=== PATIENT | male | born 1965 | race Caucasian/White ===

== ENCOUNTER 2025-09-05 06:15 | Day surgery (SDC) | payer OTHER ==
[~2025-09-05 06:15] MED LIST: ceFAZolin 2 GM in Water For Injection, Sterile 20 ML IVPUSH ONE
[2025-09-05] MEDS: Lactated Ringers 1,000 ML IV SCH (06:58)
[2025-09-05] MEDS ORDERED: Ondansetron 4 MG/2 ML SDV IVPUSH PRN (07:02)
[2025-09-05] MEDS ORDERED: fentaNYL 50 MCG/ML SDV IVPUSH PRN (07:02)
[2025-09-05] MEDS ORDERED: Naloxone 0.4 MG/ML SDV IVPUSH PRN (07:02)
[2025-09-05] MEDS ORDERED: Albuterol 0.083% 2.5 MG/3 ML Neb Soln NEB PRN (07:02)
[2025-09-05] MEDS ORDERED: Ropivacaine 0.5% 5 MG/ML 30 ML SDV ONE (07:13)
[2025-09-05] MEDS ORDERED: fentaNYL 100 MCG/2 ML SDV ONE (07:20)
[2025-09-05] MEDS ORDERED: Propofol 200 MG/20 ML SDV ONE (07:20)
[2025-09-05] MEDS ORDERED: Midazolam 1 MG/ML 2 ML SDV ONE (07:20)
[2025-09-05] MEDS ORDERED: dexmedeTOMIDine HCl 200 MCG/2 ML SDV ONE (07:21)
[2025-09-05] MEDS ORDERED: Dexamethasone 4 MG/ML 5 ML MDV ONE (08:36)
[2025-09-05] MEDS ORDERED: Ondansetron 4 MG/2 ML SDV ONE (08:36)
[2025-09-05] MEDS ORDERED: Ketorolac 30 MG/ML SDV ONE (08:39)
[2025-09-05] MEDS ORDERED: ePHEDrine 50 MG/ML SDV ONE (08:55)
== END 2025-09-05 10:25 | disposition home or self-care (01) ==
LOC: MW.SDS 06:15
PROVIDERS: ATTEND Surgery
DX: K42.9 Umbilical hernia without obstruction or gangrene (principal); E78.00 Pure hypercholesterolemia, unspecified; I10 Essential (primary) hypertension; F17.210 Nicotine dependence, cigarettes, uncomplicated; Z79.899 Other long term (current) drug therapy
CPT/HCPCS: 49591; A9270; J0665; J1100; J1885; J2003; J2250; J2405; J2704; J2795; J3010; J7120; 00830; 64488; J3490